=== PATIENT | male | born 1955 | race Caucasian/White ===

== ENCOUNTER 2022-05-20 17:17 | Inpatient (IN) | payer BC, MEDICARE ==
[~2022-05-20 17:17] MED LIST: Iopamidol-370 76% 500 ML 1 ML ONE
[2022-05-20] MEDS ORDERED: Pantoprazole 40 MG VIAL ONE (17:42)
[2022-05-20 18:24] LABS: #Eosinphils 0.1 thou/uL (0.0-0.7); #Lymphocytes 2.8 thou/uL (1.20-3.40); #Monocytes 0.4 thou/uL (0.11-0.59); #Neutrophils 5.5 thou/uL (1.40-6.50); %Eosinophils 1.1 % (0.0-10.0); %Lymphocytes 31.7 % (21.0-51.0); %Monocytes 4.3 % (0.0-10.0); %Neutrophils 62.9 % (42.0-75.0); Mean Corpuscular HGB CONC 29.4 g/dL (32.0-36.0); Mean Corpuscular Hemoglobin 31.2 pg (27.0-31.0); Platelet Count 318 10x3/uL (130-400); Red Blood Cell (RBC) Count 1.92 mill/uL (4.70-6.10); White Blood Cell (WBC) Count 8.7 10x3/uL (4.8-10.8)
[2022-05-20 18:52] LABS: INR-International Normal Ratio 1.2; Prothrombin Time 16.1 sec (12.0-14.7)
[2022-05-20 18:53] LABS: PTT 30.5 sec (22.9-36.1)
[2022-05-20 18:54] LABS: ALT (SGPT) 8 U/L (8-55); AST (SGOT) 15 U/L (5-34); Albumin 2.4 g/dL (3.4-4.8); Alkaline Phosphatase 39 U/L (40-110); Anion Gap 25 mmol/L (10-20); BUN (Urea Nitrogen) 20 mg/dL (8.4-25.7); Bilirubin, Total 0.2 mg/dL (0.2-1.2); CK (CPK) 26 U/L (30-200); Calc. Creatinine Clearance 0 mL/min (70-130); Chloride 102 mmol/L (98-107); Estimated GFR 85; Globulin 1.9 g/dL (2.4-3.5); Glucose 343 mg/dL (80-115); Lipase 16 U/L (8-78); Potassium 4.9 mmol/L (3.5-5.1); Protein, Total 4.3 g/dL (5.8-8.1); Sodium 130 mmol/L (136-145)
[2022-05-20 18:56] LABS: Acetaminophen Less than 10.0 mcg/mL (10.0-30.0); Alcohol Less than 10 mg/dL (Less than 10); Salicylate Less than 8.0 mg/dL (15.0-30.0)
[2022-05-20 19:06] LABS: Carbon Dioxide 8 mmol/L (23-31)
[2022-05-20] MEDS ORDERED: Sodium Bicarb 50 MEQ/50 ML VIAL ONE (19:25)
[2022-05-20] MEDS ORDERED: INSULIN REGULAR IN 0.9 % NACL 100 UNIT/100 ML BAG ONE (19:25)
[2022-05-20 20:21] LABS: Analyzer IN Cardio ER; Base Excess (BEa) -12.3 mEq/L (-2.0 to +3.0); Calcium, Ionized (arterial) 1.05 mmol/L (1.12-1.30); Carboxyhemoglobin (COHb) 0.3 gm% (0.0-3.0); O2 Tension (PaO2), arterial 93.5 mmHg (> 80.0); Potassium - ABG Lab 3.75 mmol/L (3.70-5.30); pH, Arterial 7.33 (7.35-7.45)
[2022-05-20 20:32] LABS: Actual Bicarbonate (HCO3a) 12.6 mEq/L (22-28); CO2 Tension 24.2 mmHg (35.0-45.0); Hemoglobin (Hb) 4.4 g/dL (14.0-18.0)
[2022-05-20 20:34] LABS: Puncture Site LRA
[2022-05-20] MEDS ORDERED: D5 1/2 NS w/20 mEq KCL 1,000 ML IV PRN (20:59)
[2022-05-20] MEDS ORDERED: Acetaminophen 650 MG Suppository PR PRN (20:59)
[2022-05-20] MEDS ORDERED: Dextrose 5 %-0.45 % NaCl 1,000 ML IV PRN ×3 (20:59→23:15)
[2022-05-20] MEDS ORDERED: Ondansetron ODT 4 MG TAB PO PRN (20:59)
[2022-05-20] MEDS ORDERED: Ondansetron PF 4 MG/2 ML Vial IVP PRN (20:59)
[2022-05-20] MEDS ORDERED: Sodium Chloride 0.9% 1,000 ML IV PRN ×7 (20:59→23:15)
[2022-05-20] MEDS ORDERED: Acetaminophen 325 MG TAB PO PRN (20:59)
[2022-05-20] MEDS ORDERED: NS 0.9% w/ 20 MEQ KCL 1,000 ML IV PRN (20:59)
[2022-05-20] MEDS ORDERED: Electrolyte Replacement Protocol 1 EACH IVPB SCH (20:59)
[2022-05-20] MEDS ORDERED: HUMULIN R 100 UNITS in Sodium Chloride 0.9% 100 ML IVPB SCH ×3 (21:00→23:15)
[2022-05-20 21:06] LABS: Bilirubin Negative (Negative); Blood, Urine Negative (Negative); Clarity Clear (Clear); Glucose, Urine (Dipstick) 300 mg/dL (Negative); Ketone, Urine Trace mg/dL (Negative); Leukocyte Negative Leu/uL (Negative); Nitrite Negative (Negative); Protein, Urine (Dipstick) 20 mg/dL (Neg-Trace); Specific Gravity, Urine 1.028 (1.002-1.036); Urobilinogen Normal mg/dL (Less than 2)
[2022-05-20] MEDS ORDERED: Cefepime 2 GM VIAL ONE (21:19)
[2022-05-20] MEDS ORDERED: Sodium Chloride 0.9% 1,000 ML IV SCH (21:30)
[2022-05-20 21:37] LABS: Magnesium 1.9 mg/dL (1.6-2.6); Phosphorus 5.2 mg/dL (2.3-4.7)
[2022-05-20 21:44] LABS: SARS-CoV-2 NAA Rapid Test Not Detected (NotDetected)
[2022-05-20] MEDS ORDERED: Magnesium 2 GM/50 ML(in water) 2 GM in Premix Bag 1 BAG IVPB SCH (22:00)
[2022-05-20 22:02] LABS: Amphetamine Not Detected (NotDetected); Barbiturates Screen Not Detected (NotDetected); Benzodiazepine Screen Not Detected (NotDetected); Cocaine Metabolite Screen Not Detected (NotDetected); Methadone Not Detected (NotDetected); Methamphetamine Not Detected (NotDetected); Opiate Screen Not Detected (NotDetected); Oxycodone Screen Not Detected (NotDetected); Phencyclidine (PCP) Not Detected (NotDetected); THC/Cannabinoid Screen Detected (NotDetected); Tricyclic Screen Not Detected (NotDetected)
[2022-05-20] MEDS: Dextrose 50% Abboject 50 ML SYRINGE ONE ×2 (22:12→23:40)
[2022-05-20] MEDS: Thiamine HCl 200 MG/2 ML VIAL SLOW IVP SCH (22:20)
[2022-05-20 22:30] LABS: Hemoglobin A1c 4.8 % (4.0-6.0)
[2022-05-20] MEDS ORDERED: Dextrose 50% Abboject 50 ML SYRINGE SLOW IVP PRN ×2 (22:30→23:06)
[2022-05-20] MEDS ORDERED: Dextrose 5% in Water 1,000 ML IV PRN ×2 (22:30→23:15)
[2022-05-20] MEDS: Pantoprazole 80 MG in Sodium Chloride 0.9% 100 ML IVPB SCH (22:33)
[2022-05-20 22:41] LABS: Anion Gap 13 mmol/L (10-20); BUN (Urea Nitrogen) 19 mg/dL (8.4-25.7); Calc. Creatinine Clearance 0 mL/min (70-130); Calcium 7.2 mg/dL (7.8-10.44); Carbon Dioxide 19 mmol/L (23-31); Chloride 104 mmol/L (98-107); Estimated GFR 97; Glucose 124 mg/dL (80-115); Potassium 3.5 mmol/L (3.5-5.1); Sodium 132 mmol/L (136-145)
[2022-05-20 22:42] LABS: Lactic Acid 6.8 mmol/L (0.5-2.2)
[2022-05-20] MEDS: Octreotide Acetate 1,250 MCG in Sodium Chloride 0.9% 250 ML 250 ML IVPB SCH ×2 (23:15→23:26)
[2022-05-20] MEDS ORDERED: NS 0.9% w/ 20 MEQ KCL 1,000 ML/1,000 ML BAG IV PRN ×2 (23:15)
[2022-05-20] MEDS ORDERED: Insulin Regular 300 UNITS/3 ML VIAL IVP SCH (23:15)
[2022-05-20] MEDS: D5 1/2 NS w/20 mEq KCL 1,000 ML IV PRN ×2 (23:17→23:27)
[2022-05-20] MEDS ORDERED: VANCOMYCIN 1.25 GM/250 ML BAG 1.25 GM in Premix Bag 1 BAG IVPB SCH (23:59)
[2022-05-21 01:58] LABS: #Lymphocytes 1.4 thou/uL (1.20-3.40); #Monocytes 0.6 thou/uL (0.11-0.59); #Neutrophils 13.2 thou/uL (1.40-6.50); %Eosinophils 0.1 % (0.0-10.0); %Lymphocytes 9.4 % (21.0-51.0); %Monocytes 4.2 % (0.0-10.0); %Neutrophils 86.4 % (42.0-75.0); Hemoglobin 7.2 g/dL (14.0-18.0); Mean Corpuscular HGB CONC 34.6 g/dL (32.0-36.0); Mean Corpuscular Hemoglobin 32.9 pg (27.0-31.0); Mean Corpuscular Volume 95.1 fl (78.0-98.0); Mean Platelet Volume 6.8 fL (7.4-10.4); Platelet Count 276 10x3/uL (130-400); RBC Distribution Width 13.5 % (11.5-14.5); Red Blood Cell (RBC) Count 2.19 mill/uL (4.70-6.10); White Blood Cell (WBC) Count 15.3 10x3/uL (4.8-10.8)
[2022-05-21 02:12] LABS: Anion Gap 9 mmol/L (10-20); BUN (Urea Nitrogen) 20 mg/dL (8.4-25.7); Calc. Creatinine Clearance 79 mL/min (70-130); Calcium 7.2 mg/dL (7.8-10.44); Carbon Dioxide 20 mmol/L (23-31); Chloride 105 mmol/L (98-107); Estimated GFR 100; Glucose 170 mg/dL (80-115); Sodium 130 mmol/L (136-145)
[2022-05-21 03:09] LABS: Hemoglobin 7.8 g/dL (14.0-18.0)
[2022-05-21] MEDS: D5 1/2 NS w/20 mEq KCL 1,000 ML IV SCH ×3 (04:21→20:08)
[2022-05-21 06:43] LABS: Lactic Acid 0.9 mmol/L (0.5-2.2)
[2022-05-21 06:47] LABS: Anion Gap 6 mmol/L (10-20); BUN (Urea Nitrogen) 18 mg/dL (8.4-25.7); Calc. Creatinine Clearance 82 mL/min (70-130); Calcium 7.2 mg/dL (7.8-10.44); Carbon Dioxide 22 mmol/L (23-31); Chloride 105 mmol/L (98-107); Estimated GFR 101; Glucose 138 mg/dL (80-115); Potassium 4.4 mmol/L (3.5-5.1); Sodium 129 mmol/L (136-145)
[2022-05-21] MEDS: Cefepime 2 GM in Sodium Chloride 0.9% 100 ML IVPB SCH ×2 (08:59→20:07)
[2022-05-21] MEDS ORDERED: Vancomycin 1 GM in Premix Bag 1 BAG IVPB SCH (09:00)
[2022-05-21] MEDS: Pantoprazole 80 MG in Sodium Chloride 0.9% 100 ML IVPB SCH (09:21)
[2022-05-21 10:03] LABS: Hemoglobin 7.6 g/dL (14.0-18.0)
[2022-05-21 10:23] LABS: Anion Gap 8 mmol/L (10-20); BUN (Urea Nitrogen) 16 mg/dL (8.4-25.7); Calc. Creatinine Clearance 83 mL/min (70-130); Calcium 7.3 mg/dL (7.8-10.44); Carbon Dioxide 19 mmol/L (23-31); Chloride 107 mmol/L (98-107); Estimated GFR 101; Glucose 127 mg/dL (80-115); Potassium 4.3 mmol/L (3.5-5.1); Sodium 130 mmol/L (136-145)
[2022-05-21] MEDS ORDERED: Vancomycin HCl 750 MG in Sodium Chloride 0.9% 250 ML 250 ML IVPB SCH (12:00)
[2022-05-21 14:40] LABS: Hemoglobin 7.3 g/dL (14.0-18.0)
[2022-05-21] MEDS: Pantoprazole 80 MG, Admixture Fee 1 EACH in Sodium Chloride 0.9% 100 ML IVPB SCH (17:34)
[2022-05-21] MEDS: Octreotide Acetate 1,250 MCG in Sodium Chloride 0.9% 250 ML 250 ML IVPB SCH ×2 (17:34→22:24)
[2022-05-21] MEDS ORDERED: Midazolam HCl 2 mg/2 ml Vial ONE (20:41)
[2022-05-21] MEDS ORDERED: Ketamine 50 MG/ML (10ML VIAL) ONE (20:41)
[2022-05-21] MEDS ORDERED: Morphine 4 MG/ML VIAL SLOW IVP PRN (21:45)
[2022-05-21] MEDS ORDERED: Propofol BOLUS 1,000 MG/100 ML VIAL IV PRN (21:45)
[2022-05-21] MEDS ORDERED: Morphine CADD 100 ML IVPB SCH (21:45)
[2022-05-21] MEDS ORDERED: DISCONTINUE PREVIOUS NARCOTIC PAIN MEDICATIONS AND BENZODIAZEPINES FS SCH (21:45)
[2022-05-21] MEDS ORDERED: Ventilator Sedation Protocol 1 EACH FS SCH (21:45)
[2022-05-21] MEDS: Midazolam HCl 2 mg/2 ml Vial SLOW IVP PRN (21:50)
[2022-05-21] MEDS ORDERED: Dexmedetomidine In 0.9 % NaCl 100 ML IVPB SCH (22:00)
[2022-05-21] MEDS: Propofol 1,000 MG/100 ML VIAL IV PRN (22:00)
[2022-05-21] MEDS: Thiamine HCl 200 MG/2 ML VIAL SLOW IVP SCH (22:24)
[2022-05-21 22:31] LABS: Actual Bicarbonate (HCO3a) 21.1 mEq/L (22-28); Base Excess (BEa) -4.8 mEq/L (-2.0 to +3.0); CO2 Tension 42.7 mmHg (35.0-45.0); Calcium, Ionized (arterial) 1.14 mmol/L (1.12-1.30); Carboxyhemoglobin (COHb) 0.5 gm% (0.0-3.0); Hemoglobin (Hb) 7.9 g/dL (14.0-18.0); Potassium - ABG Lab 4.28 mmol/L (3.70-5.30); pH, Arterial 7.31 (7.35-7.45)
[2022-05-21 22:32] LABS: O2 Tension (PaO2), arterial 55.2 mmHg (> 80.0); Puncture Site LRA
[2022-05-21 22:33] LABS: ALV-art Gradient 247.925 mmHg (0-20)
[2022-05-22] MEDS: Midazolam HCl 2 mg/2 ml Vial SLOW IVP PRN (02:45)
[2022-05-22 02:52] LABS: #Basophils 0.1 thou/uL (0.0-0.2); #Monocytes 0.6 thou/uL (0.11-0.59); #Neutrophils 11.8 thou/uL (1.40-6.50); %Basophils 0.8 % (0.0-1.0); %Eosinophils 0.1 % (0.0-10.0); %Lymphocytes 13.8 % (21.0-51.0); %Monocytes 4.4 % (0.0-10.0); %Neutrophils 80.9 % (42.0-75.0); Hemoglobin 9.3 g/dL (14.0-18.0); Mean Corpuscular HGB CONC 33.8 g/dL (32.0-36.0); Mean Corpuscular Hemoglobin 31.7 pg (27.0-31.0); Mean Corpuscular Volume 93.7 fl (78.0-98.0); Platelet Count 265 10x3/uL (130-400); RBC Distribution Width 15.9 % (11.5-14.5); Red Blood Cell (RBC) Count 2.92 mill/uL (4.70-6.10); White Blood Cell (WBC) Count 14.6 10x3/uL (4.8-10.8)
[2022-05-22 03:26] LABS: Troponin I 0.054 ng/mL (< 0.028)
[2022-05-22] MEDS: Pantoprazole 80 MG, Admixture Fee 1 EACH in Sodium Chloride 0.9% 100 ML IVPB SCH ×3 (03:27→22:56)
[2022-05-22] MEDS: D5 1/2 NS w/20 mEq KCL 1,000 ML IV SCH ×3 (04:54→20:47)
[2022-05-22] MEDS: Scopolamine 1.5 mg/72 hour Patch TD SCH (05:24)
[2022-05-22 06:18] LABS: Anion Gap 12 mmol/L (10-20); BUN (Urea Nitrogen) 13 mg/dL (8.4-25.7); Calc. Creatinine Clearance 84 mL/min (70-130); Calcium 7.3 mg/dL (7.8-10.44); Carbon Dioxide 18 mmol/L (23-31); Chloride 107 mmol/L (98-107); Estimated GFR 100; Glucose 261 mg/dL (80-115); Potassium 4.8 mmol/L (3.5-5.1); Sodium 132 mmol/L (136-145)
[2022-05-22] MEDS: Propofol 1,000 MG/100 ML VIAL IV PRN ×2 (06:57→14:10)
[2022-05-22] MEDS: Cefepime 2 GM in Sodium Chloride 0.9% 100 ML IVPB SCH ×2 (09:00→20:47)
[2022-05-22] MEDS ORDERED: Midazolam HCl 2 mg/2 ml Vial ONE (10:35)
[2022-05-22] MEDS ORDERED: Dexamethasone 20 MG/5 ML VIAL ONE (11:00)
[2022-05-22] MEDS ORDERED: PROPOFOL 200 MG/20 ML VIAL ONE (11:00)
[2022-05-22] MEDS ORDERED: Rocuronium Bromide 10 MG/ML (10ML VIAL) ONE (11:00)
[2022-05-22] MEDS ORDERED: EPINEPHrine 1 MG/10 ML Abboject SYRINGE ONE (11:15)
[2022-05-22] MEDS ORDERED: Lorazepam 2 MG/ML VIAL SLOW IVP PRN (12:58)
[2022-05-22 14:15] LABS: Hemoglobin 9.7 g/dL (14.0-18.0)
[2022-05-22 20:37] LABS: Hemoglobin 9.4 g/dL (14.0-18.0)
[2022-05-22] MEDS: Thiamine HCl 200 MG/2 ML VIAL SLOW IVP SCH (22:55)
[2022-05-22] MEDS: Octreotide Acetate 1,250 MCG in Sodium Chloride 0.9% 250 ML 250 ML IVPB SCH (22:55)
[2022-05-23] MEDS: Propofol 1,000 MG/100 ML VIAL IV PRN (00:43)
[2022-05-23 05:05] LABS: #Eosinphils 0.1 thou/uL (0.0-0.7); #Lymphocytes 1.3 thou/uL (1.20-3.40); #Monocytes 0.6 thou/uL (0.11-0.59); #Neutrophils 8.5 thou/uL (1.40-6.50); %Basophils 0.1 % (0.0-1.0); %Eosinophils 1.3 % (0.0-10.0); %Lymphocytes 11.9 % (21.0-51.0); %Monocytes 5.8 % (0.0-10.0); Mean Corpuscular HGB CONC 35.4 g/dL (32.0-36.0); Mean Corpuscular Hemoglobin 33.1 pg (27.0-31.0); Mean Corpuscular Volume 93.6 fl (78.0-98.0); Mean Platelet Volume 7.2 fL (7.4-10.4); Platelet Count 260 10x3/uL (130-400); RBC Distribution Width 16.5 % (11.5-14.5); Red Blood Cell (RBC) Count 3.01 mill/uL (4.70-6.10); White Blood Cell (WBC) Count 10.5 10x3/uL (4.8-10.8)
[2022-05-23 05:32] LABS: ALT (SGPT) 24 U/L (8-55); AST (SGOT) 51 U/L (5-34); Albumin 2.2 g/dL (3.4-4.8); Alkaline Phosphatase 43 U/L (40-110); Anion Gap 8 mmol/L (10-20); BUN (Urea Nitrogen) 9 mg/dL (8.4-25.7); Bilirubin, Total 0.3 mg/dL (0.2-1.2); Calc. Creatinine Clearance 94 mL/min (70-130); Calcium 7.4 mg/dL (7.8-10.44); Carbon Dioxide 21 mmol/L (23-31); Chloride 109 mmol/L (98-107); Estimated GFR 103; Glucose 90 mg/dL (80-115); Magnesium 1.6 mg/dL (1.6-2.6); Potassium 4.2 mmol/L (3.5-5.1); Protein, Total 4.2 g/dL (5.8-8.1); Sodium 134 mmol/L (136-145)
[2022-05-23] MEDS: D5 1/2 NS w/20 mEq KCL 1,000 ML IV SCH ×3 (05:32→21:18)
[2022-05-23] MEDS ORDERED: Magnesium 2 GM/50 ML(in water) 2 GM in Premix Bag 1 BAG IVPB SCH (08:00)
[2022-05-23] MEDS: Pantoprazole 80 MG, Admixture Fee 1 EACH in Sodium Chloride 0.9% 100 ML IVPB SCH ×2 (08:41→16:47)
[2022-05-23] MEDS: Cefepime 2 GM in Sodium Chloride 0.9% 100 ML IVPB SCH ×2 (08:41→21:18)
[2022-05-23] MEDS ORDERED: FLU VACC QS2022-23(65YR UP)/PF 240 MCG/0.7 ML SYRINGE IM ONE (09:00)
[2022-05-23 11:37] LABS: Syphilis Antibody Nonreactive (Nonreactive); Syphilis Antibody Index 0.02 S/CO (<1.00 Non-Reactive)
[2022-05-23] MEDS: Octreotide Acetate 1,250 MCG in Sodium Chloride 0.9% 250 ML 250 ML IVPB SCH (16:47)
[2022-05-23] MEDS: Thiamine HCl 200 MG/2 ML VIAL SLOW IVP SCH (21:17)
[2022-05-24] MEDS: Pantoprazole 80 MG, Admixture Fee 1 EACH in Sodium Chloride 0.9% 100 ML IVPB SCH ×2 (03:57→22:27)
[2022-05-24 04:35] LABS: #Lymphocytes 1.3 thou/uL (1.20-3.40); #Monocytes 0.9 thou/uL (0.11-0.59); #Neutrophils 9.3 thou/uL (1.40-6.50); %Eosinophils 0.4 % (0.0-10.0); %Lymphocytes 11.3 % (21.0-51.0); %Monocytes 7.8 % (0.0-10.0); %Neutrophils 80.4 % (42.0-75.0); Mean Corpuscular HGB CONC 33.4 g/dL (32.0-36.0); Mean Corpuscular Hemoglobin 31.2 pg (27.0-31.0); Mean Corpuscular Volume 93.6 fl (78.0-98.0); Mean Platelet Volume 7.1 fL (7.4-10.4); Platelet Count 314 10x3/uL (130-400); RBC Distribution Width 16.6 % (11.5-14.5); White Blood Cell (WBC) Count 11.6 10x3/uL (4.8-10.8)
[2022-05-24 04:53] LABS: Magnesium 1.6 mg/dL (1.6-2.6)
[2022-05-24] MEDS: D5 1/2 NS w/20 mEq KCL 1,000 ML IV SCH ×3 (05:33→20:06)
[2022-05-24] MEDS ORDERED: Magnesium 2 GM/50 ML(in water) 2 GM in Premix Bag 1 BAG IVPB SCH (06:45)
[2022-05-24] MEDS: Cefepime 2 GM in Sodium Chloride 0.9% 100 ML IVPB SCH ×2 (08:06→21:05)
[2022-05-24] MEDS: Thiamine HCl 200 MG/2 ML VIAL SLOW IVP SCH (21:05)
[2022-05-25] MEDS: Octreotide Acetate 1,250 MCG in Sodium Chloride 0.9% 250 ML 250 ML IVPB SCH (03:24)
[2022-05-25] MEDS: D5 1/2 NS w/20 mEq KCL 1,000 ML IV SCH ×2 (03:27→13:02)
[2022-05-25] MEDS: Scopolamine 1.5 mg/72 hour Patch TD SCH (05:27)
[2022-05-25 07:05] LABS: #Eosinphils 0.1 thou/uL (0.0-0.7); #Lymphocytes 1.3 thou/uL (1.20-3.40); #Neutrophils 7.7 thou/uL (1.40-6.50); %Basophils 0.2 % (0.0-1.0); %Eosinophils 1.1 % (0.0-10.0); %Lymphocytes 12.7 % (21.0-51.0); %Monocytes 9.8 % (0.0-10.0); %Neutrophils 76.2 % (42.0-75.0); Hemoglobin 9.3 g/dL (14.0-18.0); Mean Corpuscular HGB CONC 32.7 g/dL (32.0-36.0); Mean Corpuscular Hemoglobin 30.9 pg (27.0-31.0); Mean Corpuscular Volume 94.5 fl (78.0-98.0); Mean Platelet Volume 7.3 fL (7.4-10.4); Platelet Count 371 10x3/uL (130-400); White Blood Cell (WBC) Count 10.1 10x3/uL (4.8-10.8)
[2022-05-25 07:11] LABS: ALT (SGPT) 22 U/L (8-55); AST (SGOT) 42 U/L (5-34); Albumin 2.2 g/dL (3.4-4.8); Alkaline Phosphatase 52 U/L (40-110); Anion Gap 7 mmol/L (10-20); BUN (Urea Nitrogen) 6 mg/dL (8.4-25.7); Bilirubin, Total 0.3 mg/dL (0.2-1.2); Calc. Creatinine Clearance 87 mL/min (70-130); Calcium 7.5 mg/dL (7.8-10.44); Carbon Dioxide 22 mmol/L (23-31); Chloride 103 mmol/L (98-107); Estimated GFR 101; Globulin 2.2 g/dL (2.4-3.5); Glucose 121 mg/dL (80-115); Magnesium 1.6 mg/dL (1.6-2.6); Potassium 4.5 mmol/L (3.5-5.1); Protein, Total 4.4 g/dL (5.8-8.1); Sodium 127 mmol/L (136-145)
[2022-05-25] MEDS ORDERED: Magnesium 2 GM/50 ML(in water) 2 GM in Premix Bag 1 BAG IVPB SCH (08:00)
[2022-05-25] MEDS: Cefepime 2 GM in Sodium Chloride 0.9% 100 ML IVPB SCH (09:30)
[2022-05-25 10:55] VITALS: BMI 17.4
[2022-05-25] MEDS: Thiamine HCl 200 MG/2 ML VIAL SLOW IVP SCH (20:41)
[2022-05-25] MEDS: Pantoprazole 40 MG VIAL IVP SCH (20:41)
[2022-05-26 06:59] LABS: #Eosinphils 0.2 thou/uL (0.0-0.7); #Lymphocytes 1.8 thou/uL (1.20-3.40); #Neutrophils 5.8 thou/uL (1.40-6.50); %Basophils 0.1 % (0.0-1.0); %Eosinophils 2.1 % (0.0-10.0); %Lymphocytes 20.3 % (21.0-51.0); %Monocytes 11.5 % (0.0-10.0); %Neutrophils 66.1 % (42.0-75.0); Hemoglobin 10.7 g/dL (14.0-18.0); Mean Corpuscular HGB CONC 32.2 g/dL (32.0-36.0); Mean Corpuscular Hemoglobin 30.6 pg (27.0-31.0); Mean Corpuscular Volume 94.9 fl (78.0-98.0); Platelet Count 488 10x3/uL (130-400); RBC Distribution Width 15.8 % (11.5-14.5); White Blood Cell (WBC) Count 8.8 10x3/uL (4.8-10.8)
[2022-05-26 07:21] LABS: Anion Gap 10 mmol/L (10-20); BUN (Urea Nitrogen) 7 mg/dL (8.4-25.7); Calc. Creatinine Clearance 78 mL/min (70-130); Calcium 8.3 mg/dL (7.8-10.44); Carbon Dioxide 24 mmol/L (23-31); Chloride 101 mmol/L (98-107); Estimated GFR 99; Glucose 76 mg/dL (80-115); Sodium 131 mmol/L (136-145)
[2022-05-26] MEDS: Pantoprazole 40 MG VIAL IVP SCH (08:54)
[2022-05-26 08:55] VITALS: BP 136/72; TEMP 97.9
[2022-05-27 14:09] LABS: Cytoplasmic (C-ANCA) <1:20 titer (Neg:<1:20); Perinuclear (P-ANCA) <1:20 titer (Neg:<1:20)
[2022-05-29 17:38] LABS: QuantiFERON-TB Gold Plus Negative (Negative)
[2055-05-21] MEDS ORDERED: Rocuronium Bromide 10 MG/ML (10ML VIAL) ONE (14:53)
[2055-05-21] MEDS ORDERED: EPINEPHrine 1 MG/10 ML Abboject SYRINGE ONE (14:53)
== END 2022-05-26 17:45 | disposition home or self-care (01) | DRG 871 ==
LOC: ERS 17:17 → CCU 20:22 → T4-B 05-24 11:25
PROVIDERS: ADMIT Student in an Organized Health Care Education/Training Program; ATTEND Hospitalist
PROC: 06HY33Z Insertion of Infusion Device into Lower Vein, Percutaneous Approach (ICD-10-PCS; 2022-05-20)
PROC: 30233N1 Transfusion of Nonautologous Red Blood Cells into Peripheral Vein, Percutaneous Approach (ICD-10-PCS; 2022-05-20)
PROC: 3E03329 Introduction of Other Anti-infective into Peripheral Vein, Percutaneous Approach (ICD-10-PCS; 2022-05-20)
PROC: 0W3P8ZZ Control Bleeding in Gastrointestinal Tract, Via Natural or Artificial Opening Endoscopic (ICD-10-PCS; principal; 2022-05-21)
PROC: 0W3P8ZZ Control Bleeding in Gastrointestinal Tract, Via Natural or Artificial Opening Endoscopic (ICD-10-PCS; 2022-05-21)
PROC: 0BH17EZ Insertion of Endotracheal Airway into Trachea, Via Natural or Artificial Opening (ICD-10-PCS; 2022-05-21)
PROC: 5A1945Z Respiratory Ventilation, 24-96 Consecutive Hours (ICD-10-PCS; 2022-05-21)
PROC: 3E043XZ Introduction of Vasopressor into Central Vein, Percutaneous Approach (ICD-10-PCS; 2022-05-22)
DX: A41.9 Sepsis, unspecified organism (principal); E11.10 Type 2 diabetes mellitus with ketoacidosis without coma; K26.4 Chronic or unspecified duodenal ulcer with hemorrhage; G93.41 Metabolic encephalopathy; J96.01 Acute respiratory failure with hypoxia; D62 Acute posthemorrhagic anemia; E87.1 Hypo-osmolality and hyponatremia; K76.0 Fatty (change of) liver, not elsewhere classified; F17.210 Nicotine dependence, cigarettes, uncomplicated; I71.43 Infrarenal abdominal aortic aneurysm, without rupture; F10.10 Alcohol abuse, uncomplicated; L71.1 Rhinophyma; E11.65 Type 2 diabetes mellitus with hyperglycemia; Z20.822 Contact with and (suspected) exposure to COVID-19; Z79.82 Long term (current) use of aspirin; Z79.899 Other long term (current) drug therapy
CPT/HCPCS: 36415; 36416; 36430; 36556; 36600; 51702; 71045; 74177; 80048; 80053; 80202; 80306; 80307; 81003; 82010; 82550; 82553; 82805; 83036; 83605; 83690; 83735; 83880; 84100; 84145; 84484; 85025; 85610; 85730; 86037; 86480; 86780; 86850; 86900; 86901; 87040; 87081; 87086; 93005; 93306; 94002; 94003; 94640; 96361; 96365; 96375; C1776; C9113; J0171; J0692; J1100; J1815; J2060; J2250; J2274; J2354; J2704; J3370; J3411; J3475; J3480; J3490; J7042; J7050; J7620; J7999; P9016; Q9967; U0002

== ENCOUNTER 2024-03-02 20:15 | Inpatient (IN) | payer MEDICARE ==
[2024-03-02 20:57] LABS: #Basophils 0.07 10x3/uL (0.0-0.2); %Basophils 0.6 % (0.0-1.0); %Eosinophils 0.5 % (0.0-10.0); %Lymphocytes 14.6 % (21.0-51.0); %Monocytes 10.1 % (0.0-10.0); %Neutrophils 73.7 % (42.0-75.0); Hematocrit 36.2 % (42.0-52.0); Hemoglobin 11.3 g/dL (14.0-18.0); Mean Corpuscular HGB CONC 31.2 g/dL (32.0-36.0); Mean Corpuscular Hemoglobin 32.4 pg (27.0-31.0); Mean Corpuscular Volume 103.7 fL (78.0-98.0); Mean Platelet Volume 9.3 fL (7.4-10.4); Platelet Count 373 10x3/uL (130-400); RBC Distribution Width 14.8 % (11.5-14.5); Red Blood Cell (RBC) Count 3.49 mill/uL (4.70-6.10)
[2024-03-02 21:15] LABS: ALT (SGPT) 14 U/L (8-55); AST (SGOT) 21 U/L (5-34); Albumin 3.8 g/dL (3.4-4.8); Alkaline Phosphatase 72 U/L (40-110); Anion Gap 15 mmol/L (10-20); BUN (Urea Nitrogen) 11 mg/dL (8.4-25.7); Bilirubin, Total 0.3 mg/dL (0.2-1.2); Calc. Creatinine Clearance 0 mL/min (70-130); Calcium 9.5 mg/dL (7.8-10.44); Carbon Dioxide 18 mmol/L (23-31); Chloride 104 mmol/L (98-107); Estimated GFR 68; Globulin 4.5 g/dL (2.4-3.5); Glucose 90 mg/dL (80-115); Potassium 4.4 mmol/L (3.5-5.1); Protein, Total 8.3 g/dL (5.8-8.1); Sodium 133 mmol/L (136-145)
[2024-03-02 21:23] LABS: Troponin I Less than 0.010 ng/mL (< 0.028)
[2024-03-02] MEDS ORDERED: Ondansetron PF 4 MG/2 ML Vial IVP PRN (23:45)
[2024-03-02] MEDS ORDERED: Acetaminophen 325 MG TAB PO PRN (23:45)
[2024-03-03 00:39] LABS: Troponin I Less than 0.010 ng/mL (< 0.028)
[2024-03-03 03:08] VITALS: BMI 16.7
[2024-03-03] MEDS: Lactated Ringer's 1,000 ML IV SCH (03:22)
[2024-03-03 04:07] LABS: Anion Gap 14 mmol/L (10-20); BUN (Urea Nitrogen) 10 mg/dL (8.4-25.7); Calc. Creatinine Clearance 58 mL/min (70-130); Calcium 9.6 mg/dL (7.8-10.44); Carbon Dioxide 24 mmol/L (23-31); Chloride 102 mmol/L (98-107); Estimated GFR 88; Glucose 91 mg/dL (80-115); Potassium 4.7 mmol/L (3.5-5.1); Sodium 135 mmol/L (136-145)
[2024-03-03 04:09] LABS: #Basophils 0.06 10x3/uL (0.0-0.2); %Basophils 0.7 % (0.0-1.0); %Eosinophils 0.5 % (0.0-10.0); %Lymphocytes 19.2 % (21.0-51.0); %Monocytes 14.1 % (0.0-10.0); %Neutrophils 65.2 % (42.0-75.0); Hematocrit 31.8 % (42.0-52.0); Hemoglobin 10.3 g/dL (14.0-18.0); Mean Corpuscular HGB CONC 32.4 g/dL (32.0-36.0); Mean Corpuscular Hemoglobin 31.1 pg (27.0-31.0); Mean Corpuscular Volume 96.1 fL (78.0-98.0); Mean Platelet Volume 9.4 fL (7.4-10.4); Platelet Count 487 10x3/uL (130-400); RBC Distribution Width 14.5 % (11.5-14.5); Red Blood Cell (RBC) Count 3.31 mill/uL (4.70-6.10); Troponin I Less than 0.010 ng/mL (< 0.028)
[2024-03-03] MEDS: FLU (Fluad Triv) TS24-25 (65UP)/MF59C/PF 45 MCG/0.5 ML Syringe IM ONE (08:45)
[2024-03-03] MEDS: Pantoprazole DR 40 MG TAB PO SCH (08:45)
[2024-03-03] MEDS: Gabapentin 300 MG CAP PO SCH (20:50)
[2024-03-03] MEDS: Atorvastatin Calcium 20 MG TAB PO SCH (20:51)
[2024-03-03] MEDS: HYDROcodone/Acetaminophen 5/325 mg Tablet PO PRN (21:37)
[2024-03-04 09:58] VITALS: BP 160/61; TEMP 98.3
== END 2024-03-04 10:40 | disposition home or self-care (01) | DRG 923 ==
LOC: ERS 20:15 → 2SW 22:35 → OBSVTOIN 03-03 15:51
PROVIDERS: ADMIT Internal Medicine; ATTEND Family Medicine
DX: T67.1XXA Heat syncope, initial encounter (principal); N17.9 Acute kidney failure, unspecified; E87.1 Hypo-osmolality and hyponatremia; C76.0 Malignant neoplasm of head, face and neck; E86.0 Dehydration; I10 Essential (primary) hypertension; Z98.890 Other specified postprocedural states; K26.9 Duodenal ulcer, unspecified as acute or chronic, without hemorrhage or perforation; Z79.899 Other long term (current) drug therapy; F17.210 Nicotine dependence, cigarettes, uncomplicated
CPT/HCPCS: 36415; 70450; 71045; 80048; 80053; 84484; 85025; 93005; 93306; G0378; J7120